=== PATIENT | male | born 1960 ===

== ENCOUNTER → 2023-04-25 14:56 | Outpatient (BNVA) | payer BC, SELFPAY | PROVIDERS: PCP Internal Medicine; Visit Provider Nurse Practitioner Family ==

== ENCOUNTER → 2023-06-05 14:03 | Outpatient (REF) | payer BC, SELFPAY | LOC: HO.SL 14:03 | PROVIDERS: PCP Internal Medicine; Visit Provider Nurse Practitioner Family | DX: G47.33 Obstructive sleep apnea (adult) (pediatric) (principal); R06.83 Snoring; R40.0 Somnolence | CPT/HCPCS: 95806 ==

== ENCOUNTER → 2023-06-05 14:19 | Outpatient (BNV) | payer BC, SELFPAY | PROVIDERS: PCP Internal Medicine; Visit Provider Psychiatry & Neurology Neurology | DX: G47.33 Obstructive sleep apnea (adult) (pediatric) (principal) | CPT/HCPCS: 95806 ==

== ENCOUNTER → 2023-07-19 20:30 | Outpatient (BNV) | payer BC, SELFPAY | PROVIDERS: PCP Internal Medicine; Visit Provider Psychiatry & Neurology Neurology | DX: G47.33 Obstructive sleep apnea (adult) (pediatric) (principal) | CPT/HCPCS: 95811 ==

== ENCOUNTER → 2023-07-19 20:30 | Outpatient (REF) | payer BC, SELFPAY | LOC: HO.SL 20:30 | PROVIDERS: PCP Internal Medicine; Visit Provider Nurse Practitioner Family | DX: G47.33 Obstructive sleep apnea (adult) (pediatric) (principal); G47.34 Idiopathic sleep related nonobstructive alveolar hypoventilation | CPT/HCPCS: 95811 ==

== ENCOUNTER 2023-12-06 15:29 | Outpatient (AMB) | payer BC, SELFPAY ==
--- NOTE | 2023-12-06 15:40 | A.OFFVIS_ITS ---
Intake Vital Signs 12/06/23 15:45 Height 5 ft 9 in Weight 172 lb 6 oz BMI 25.5 BP 130/80 Blood Pressure Location Lt brachial Position Sitting Pulse 64 Pulse Source Pulse Oximeter Pulse Oximetry (%) 97 Oxygen Delivery Method Room Air Intake Visit Reasons: F/u for Insomnia - CONF. Intake Note: Patient presents tried nasal air but it was to much pressure and went back to using the mask Allergies No Known Allergies Allergy (Verified 04/25/23 15:05) HPI HPI Comments History of Present Illness Details 63 y/o male patient presents for follow up of sleep study. The home sleep study result was significant for a severe degree of sleep apnea. The AHI was 48/hr and oxygen richy was 52% with average O2 at 93%. Pt also underwent titration study and started CPAP at [id number]. The CPAP compliance and therapy response (11/14/23-12/05/23) reviewed. The usage days 95% and the average usage hours 7 hrs. The residual AHI was 3.5 /hr. Pt reports he sleeps much better, less wakes up in the middle of night and daytime tiredness has improved. He uses melatonin and magnesium occasionally. He also uses ambien, too, but not every night. [facility] Surgical History Status post bilateral knee replacements Family History Mother Pulmonary fibrosis Father High blood pressure Social History Alcohol intake: current Alcohol intake frequency: a few times a month Alcohol type: beer Patient Tobacco Use Status: Former Tobacco user Quit Date: 2002 Tobacco use type: Cigarette Review of Systems Const All systems reviewed & are unremarkable except as noted in HPI and below ENT Reports Normal hearing present Neuro Reports Normal hearing present Physical Exam Vital Signs: Last Vital Signs Pulse 64 12/06/23 15:45 BP 130/80 12/06/23 15:45 Pulse Ox 97 12/06/23 15:45 Oxygen Delivery Method Room Air 12/06/23 15:45 BMI result Body Mass Index 25.5 Const General: cooperative Nutritional Appearance: average body habitus Orientation/consciousness: patient oriented x3 Neck Neck: Yes full ROM and Yes supple Resp Effort & Inspection: normal respiratory effort and able to speak in complete sentences Neuro General: patient oriented x3 and gait normal Cranial nerves: Yes Bilaterally intact EOM present, Yes Normal facial strength present, Yes Midline tongue present, Yes Normal hearing present, Yes Ability to bilaterally rotate head present and Yes Ability to bilaterally elevate shoulders present Cognition (Neuro): normal cognition Motor exam (neuro): 5/5 motor strength present throughout, Pronator motor function not present and no tremor noted Psych Appearance: grossly normal Mental Status: mental status grossly normal Speech and movement: Normal speech and movement present Affect: normal affect Attitude: cooperative Assessment & Plan Assessment & Plan (1) Sleep apnea: Comment: Severe degree of sleep apnea. The AHI was 48/hr and oxygen richy was 52%. Started CPAP at [id number]. Code(s): G47.30 - Sleep apnea, unspecified (2) Insomnia: Code(s): G47.00 - Insomnia, unspecified Plan Advised patient to continue to use CPAP at [id number] as patient experiences good clinical effect, better quality sleep. Stressed compliance, use CPAP nightly and more than 4 hrs. Advised patient to try to take magnesium 400 mg nightly with melatonin. Reduce ambien use. Coding Level of Care Code Est Pt Level 3 (01420) Diagnoses Sleep apnea G47.30 Insomnia G47.00
[2023-12-06 15:45] VITALS: BP 130/80; PULSE 64; O2SAT 97; BMI 25.5
== END 2023-12-06 16:03 | disposition home or self-care (01) ==
PROVIDERS: PCP Internal Medicine; Visit Provider Nurse Practitioner Family
DX: G47.30 Sleep apnea, unspecified (principal); G47.00 Insomnia, unspecified
CPT/HCPCS: 99213

== ENCOUNTER → 2023-12-06 15:29 | Outpatient (BNVA) | payer BC, SELFPAY | PROVIDERS: PCP Internal Medicine; Visit Provider Nurse Practitioner Family ==